=== PATIENT | male | born 1975 | race Two or more races ===

== ENCOUNTER → 2021-06-15 12:25 | Outpatient (BNVA) | payer OTHER, SELFPAY | PROVIDERS: PCP Internal Medicine; Visit Provider Dietitian, Registered | DX: R73.9 Hyperglycemia, unspecified (principal) | CPT/HCPCS: 97802 ==

== ENCOUNTER → 2021-07-29 13:32 | Outpatient (BNVA) | payer OTHER, SELFPAY | PROVIDERS: PCP Internal Medicine; Visit Provider Dietitian, Registered | DX: R73.9 Hyperglycemia, unspecified (principal); Z71.3 Dietary counseling and surveillance | CPT/HCPCS: 97803 ==

== ENCOUNTER 2021-08-14 12:35 | Emergency (ER) | payer OTHER, SELFPAY ==
[2021-08-14 12:45] VITALS: BP 132/71; PULSE 75; RESP 19; TEMP 36.6; O2SAT 98; BMI 32.5
--- NOTE | 2021-08-14 13:07 | ED_ITS ---
HPI - General Adult General Chief complaint: General Medical Stated complaint: Rash Time Seen by Provider: 08/14/21 13:07 Source: patient Mode of arrival: ambulatory Limitations: no limitations History of Present Illness HPI narrative: Patient is a 46 year old male presenting to the emergency department today with a rash to his lower back. Patient states that starting a couple of days ago, he began to have an itchy rash to his lower back and it seems to be getting worse. Patient denies any environmental changes such as new laundry soaps, new body soaps, or new sheets. Patient denies any dizziness, lightheadedness, abdominal pain, nausea, vomiting, fever, chills, blurry vision, double vision, loss of vision, chest pain, difficulty breathing, shortness of breath, back pain, night sweats, pain with urination, increased urinary frequency, increased urinary urgency, blood in his urine or stool, syncope or a near syncopal episode, recent trauma or falls, bowel incontinence, bladder incontinence, bowel retention, bladder retention, or any other complaints at this time. Onset (ago): day(s) Location: back Radiation: non-radiation Severity: mild Severity scale (1-10): 3 Quality: dull Pain Consistency: intermittent Relieving factors: none Exacerbating factors: none Associated symptoms: rash Treatments prior to arrival: none Related Data Previous Rx's Medication Instructions Recorded prednisone 20 mg tablet 20 mg PO DAILY 12 Days #26 tab 08/14/21 Allergies Allergy/AdvReac Type Severity Reaction Status Date / Time No Known Allergies Allergy Unverified 02/06/20 17:19 Review of Systems Constitutional: Constitutional: Reports no additional constitutional complaints, Denies chills, Denies fever(s) and Denies night sweats Eyes: Eyes: Reports no additional eye complaints, Denies blurry vision, Denies change in vision, Denies diplopia, Denies eye discharge, Denies loss of vision and Denies eye pain ENT: Denies dizziness Cardiovascular: Cardiovascular: Reports no additional cardiovascular complaints, Denies chest pain, Denies lightheadedness, Denies Loss of Consciousness and Denies dyspnea Respiratory: Respiratory: Reports no additional respiratory complaints and Denies dyspnea Gastrointestinal: Gastrointestinal: Reports no additional gastrointestinal complaints, Denies abdominal pain, Denies melena, Denies hematochezia, Denies change in bowel habits and Denies change in stool character Genitourinary: Genitourinary: Reports no additional male genitourinary complaints, Denies hematuria, Denies oliguria, Denies difficulty urinating, Denies dysuria, Denies urinary frequency, Denies urinary hesitancy, Denies urin jase incontinence and Denies urinary urgency Musculoskeletal: Musculoskeletal: Reports no additional musculoskeletal complaints, Denies numbness and Denies tingling Integumentary/Breasts: Skin/Breast: Reports rash Neurologic: Denies dizziness, Denies loss of vision, Denies numbness and Denies tingling Psychiatric: Psychiatric: Reports no additional psychiatric complaints Endocrine: Endocrine: Reports no additional endocrine complaints Hematologic/Lymphatic: Hematologic/Lymphatic: Reports no additional hematologic/lymphatic complaints Allergic/Immunologic: Allergic/Immunologic: Reports no additional allergic/immunologic complaints [facility] Past Medical History Attestation statement: The following information was validated with the patient. Source: old records reviewed Medical History Hypothyroidism Social History Social History Advance Directives: No Advance Directives Information Provided: No Physical Exam ED Vital Signs: Vital Signs - 24 hr 08/14/21 12:45 Temperature 98 F Pulse Rate 75 Respiratory Rate 19 Blood Pressure 132/71 Pulse Oximetry 98 BMI result Body Mass Index 32.5 Const General: cooperative, no acute distress, alert and awake Nutritional Appearance: well nourished Orientation/consciousness: patient oriented x3 Limitations: no limitations HENMT Head: Yes normal to inspection and Yes atraumatic Ears: hearing grossly normal bilaterally and external ears normal General nose exam: Normal external nose present, no nasal discharge noted and no epistaxis Face and sinus: Yes normal facial exam, No abrasion and No laceration Mouth: Normal oral and palatal mucosa present, no drooling and no muffled voice Eyes General: appearance normal, both eyes and all related structures Periorbital: periorbital findings normal Eyelids: Yes eyelids normal Conjunctivae: conjunctivae normal Pupils: Equal, round and reactive pupils present EOM: EOMs intact bilaterally Neck Neck: Yes normal visual inspection, Yes full ROM and Yes no lymphadenopathy Chest Chest palpation & inspection: normal inspection of the chest Resp Effort & Inspection: normal respiratory effort and able to speak in complete sentences Auscultation: clear to auscultation bilaterally Cardio Rate: regular rate Rhythm: regular rhythm GI Inspection: Yes normal to inspection Skin Other: urticaria present to the low back Neuro General: patient oriented x3 and moves all extremities Cranial nerves: Yes Equal, round and reactive pupils present Cognition (Neuro): normal cognition Motor exam (neuro): 5/5 motor strength present throughout Sensory Exam: Normal double simultaneous stimulation for sensation Coordination: [id number] test normal Extrem General: Yes normal to inspection, Yes full ROM and Yes capillary refill normal Psych Appearance: grossly normal Mental Status: mental status grossly normal Affect: normal affect Attitude: cooperative Thought process: Normal thought process present Thought content: Normal thought content present Insight: Good insight present (Psych) Medical Decision Making MDM Narrative Medical decision making narrative: Patient is a 46 year old male presenting to the emergency department today with a rash. Patient's physical exam showed urticaria to the low back but was otherwise unremarkable. I explained my physical exam findings to the patient. I answered all questions asked by the patient. Patient received IM solu-medrol and PO Benadryl which he stated helped his itching significantly. I stressed the importance of the patient taking his medication as prescribed. I stressed the importance of the patient following up with his primary care provider. I stressed the importance of the patient returning to the emergency department immediately if his symptoms were to worsen or if he were to develop any dizziness, shortness of breath, difficulty breathing, chest pain, blurry vision, loss of vision, nausea, vomiting, abdominal pain, fever, chills, back pain, or any other complaints. Patient verbalized agreement and understanding with this treatment plan and discharge. Differential Diagnosis Differential Diagnosis: idiopathic urticaria, contact dermatitis Medical Records Medical records reviewed: Yes I reviewed the patient's medical records. Discharge Plan Discharge Clinical Impression: Acute idiopathic urticaria Patient Disposition: Home, Self-Care Instructions: Urticaria (ED), Acute Rash (ED) Additional Instructions: Prescription steroids can cause elevation of your blood sugar, you must pay close attention to this. Follow up with your primary care provider. Return to the emergency department immediately if your symptoms worsen or if you develop any dizziness, shortness of breath, difficulty breathing, chest pain, blurry vision, loss of vision, nausea, vomiting, abdominal pain, fever, chills, back pain, or any other complaints. Prescriptions: New prednisone 20 mg tablet 20 mg PO DAILY 12 Days Qty: 26 0RF Rx Instructions: Take 3 tablets once per day for 5 days; Take 2 tablets once per day for 4 days; Take 1 tablet once per day for 3 days Referrals: Carmen Angulo MD [Primary Care Provider] - 2 days Interventions: ED Discharge Assessment Last Done: 08/14/21 13:37 Discharge Date/Time: 08/14/21 13:39 Print Language: Urdu
[2021-08-14] MEDS: methylPREDNISolone Sod Succ 125 MG/2 ML VIAL 120 MG IM (13:24)
[2021-08-14] MEDS: diphenhydrAMINE HCL 25 MG TABLET 50 MG PO (13:26)
== END 2021-08-14 13:39 | disposition home or self-care (01) ==
PROVIDERS: Emergency Provider Emergency Medicine; PCP Internal Medicine
DX: L50.1 Idiopathic urticaria (principal); E11.9 Type 2 diabetes mellitus without complications
CPT/HCPCS: 96372; 99283; 99284; J2930; Q0163

== ENCOUNTER 2022-08-04 11:30 | Emergency (ER) | payer OTHER, SELFPAY ==
--- NOTE | ~2022-08-04 | XR_ITS ---
EXAMINATION: XR SHOULDER, LEFT CLINICAL INFORMATION: Left shoulder trauma COMPARISON: None available. TECHNIQUE: Three views of the left shoulder. FINDINGS: No evidence for acute bony fracture or dislocation. Clavicle and acromion intact. No scapular disruption. The humeral head and neck are unremarkable. There is mild glenohumeral joint space narrowing. XR/XR shoulder LT min 2V IMPRESSION: No acute process. Mild glenohumeral joint space narrowing.
--- NOTE | ~2022-08-04 | XR_ITS ---
EXAMINATION: XR LUMBOSACRAL SPINE CLINICAL INFORMATION: Lumbar trauma, fell down the stairs COMPARISON: None available. TECHNIQUE: Three views of the lumbosacral spine. FINDINGS: No evidence for acute compression. Slight eccentric disc space narrowing L5-S1. Minimal spondylitic changes observed. There is facet arthrosis. Degenerative change noted at the left SI joint. There is mild narrowing of the superior right hip joint space. XR/XR lumbar spine 2-3V IMPRESSION: 1. No acute compression fracture. Slight eccentric disc space narrowing L5-S1. 2. Facet arthrosis.
[2022-08-04 11:38] VITALS: BP 123/66; PULSE 70; RESP 18; TEMP 36.7; O2SAT 96; BMI 31.0
--- NOTE | 2022-08-04 12:19 | ED_ITS ---
HPI - Extremity Problem General Chief complaint: Extremity Injury, Upper Stated complaint: L shoulder pain Time Seen by Provider: 08/04/22 11:49 Source: patient and family Mode of arrival: ambulatory Limitations: no limitations History of Present Illness HPI Narrative: 46 yo male with history of DM presents to the ER for evaluation of left shoulder pain and low back pain after he slipped and fell down 3 stairs last night at 8:30pm at home. He reports generalized low back back across his entire back, no radiation. Worse with movement and walking. No numbness, tingling or weakness in the legs. He also reports left shoulder pain both anteriolaterally and posteriorly. Minimal pain at rest, only pain with movement. No weakness or numbness in the left arm. No swelling. No other injuries. He did not hit his head or lose consciousness. He is not on a blood thinner. MD Complaint: joint pain Onset (ago): day(s) (1) Pain Consistency: intermittent Location: left, upper extremity and other (low back) Quality: aching Radiation: none Relieving factors: immobilization and rest Exacerbating factors: range of motion and palpation Associated symptoms: denies other symptoms Related Data Previous Rx's Medication Instructions Recorded prednisone 20 mg tablet 20 mg PO DAILY 12 days #26 tabs 08/14/21 cyclobenzaprine 10 mg tablet 10 mg PO TID PRN muscle spasm #14 08/04/22 tabs ibuprofen 800 mg tablet 800 mg PO Q8H PRN pain #10 tabs 08/04/22 lidocaine 5 % topical patch 1 patch topical DAILY #15 ea 08/04/22 Allergies Allergy/AdvReac Type Severity Reaction Status Date / Time No Known Allergies Allergy Unverified 02/06/20 17:19 Review of Systems Review of Systems: Yes all other systems are reviewed and are negative [facility] Past Medical History Medical History Hypothyroidism Social History Social History Alcohol intake: unknown Smoked in Last 30 Days: No Advance Directives: No Advance Directives Information Provided: No Physical Exam Vital Signs: Vital Signs: Last Vital Signs Temp 98.1 F 08/04/22 11:38 Pulse 72 08/04/22 13:11 Resp 18 08/04/22 13:11 BP 110/56 L 08/04/22 13:11 Pulse Ox 95 08/04/22 13:11 O2 Del Method 08/04/22 13:11 BMI result Body Mass Index 31.0 Appearance: Alert. Oriented X3. No acute distress. Eyes: Pupils equal, round and reactive to light. ENT: Pharynx normal. Neck: Normal inspection. Neck supple. CVS: Normal heart rate and rhythm. Pulses normal. Respiratory: No respiratory distress. Breath sounds normal. Back: normal inspection, no ecchymosis. no midline tenderness. soft tissue tenderness bilaterally in the lumbar area. Skin: Skin warm and dry. Normal skin color. Normal skin turgor. No rashes. Extremities: No lower extremity edema. Normal inspection of the legs bilaterally. normal inspection of bilateral shoulders, mild tenderness of the AC joint and posterior shoulder. limited abduction anteriorly and laterally, able to lift 90 degrees but no higher. Neuro: Oriented X 3. No motor deficit. No sensory deficit. Steady gait. 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 No LOC and he got up quickly after the fall. He is ambulatory. His exam is not consistent with any midline tenderness of the spine. He does have limited range of motion of the shoulder along with tenderness. Concern for possible sprain versus strain verses rotator cuff injury. X-ray today showed no acute fractures or injuries. Will plan to discharge patient with supportive care, outpatient follow-up with orthopedics for further evaluation treatment. Patient agrees with plan. Differential Diagnosis Differential Diagnoses: The differential diagnosis associated with the presentation includes Left shoulder sprain, left shoulder strain, rotator cuff tear, AC joint separation, contusion, low back contusion, compression fracture of the lumbar spine, lumbar strain Independent Interpretation I performed an independent interpretation of an: Plain X-Ray Interpretation: shoulder x-ray - no appreciated fractures, no AC joint separation lumar spine x-ray - no compression deformities or appreciated fractures. Radiology Impression Discussion of test interpretation with radiology: I have reviewed the radiologist's reading. Radiologist Impression: EXAMINATION: XR SHOULDER, LEFT CLINICAL INFORMATION: Left shoulder trauma? COMPARISON: None available.? TECHNIQUE: Three views of the left shoulder. FINDINGS: No evidence for acute bony fracture or dislocation. Clavicle and acromion intact. No scapular disruption. The humeral head and neck are unremarkable. There is mild glenohumeral joint space narrowing.? XR/XR shoulder LT min 2V - IMPRESSION: No acute process. Mild glenohumeral joint space narrowing. EXAMINATION: XR LUMBOSACRAL SPINE CLINICAL INFORMATION: Lumbar trauma, fell down the stairs COMPARISON: None available. TECHNIQUE: Three views of the lumbosacral spine. FINDINGS: No evidence for acute compression. Slight eccentric disc space narrowing L5-S1. Minimal spondylitic changes observed. There is facet arthrosis. Degenerative change noted at the left SI joint. There is mild narrowing of the superior right hip joint space. XR/XR lumbar spine 2-3V IMPRESSION: 1.? No acute compression fracture. Slight eccentric disc space narrowing L5-S1. 2.? Facet arthrosis. ? Independent Historian Clinical information obtained from an independent historian. History obtained from or confirmed by: Spouse Prescription Management I considered prescription management with: Pain Medication and Other (Muscle relaxer and anti-inflammatory medication) Chronic Conditions Patient?s care impacted by: Diabetes Critical Care Time Critical Care Time Critical Care Time: No Discharge Plan Discharge Clinical Impression: Contusion of lower back, Injury of shoulder Patient Disposition: Home, Self-Care Instructions: Low Back Strain (ED), Shoulder Pain (ED) Additional Instructions: Your x-rays today did not show any acute fractures or injuries. Recommend taking the prescribed anti-inflammatory medication and muscle relaxers as needed for pain. Slowly work on gentle range of motion exercises for your shoulder. Recommend following up with the orthopedic provider for further evaluation and treatment of your shoulder injury. No bending, lifting or twisting. Use ice several times per day for 20 minutes at a time for the next 48 hours and then change to heat. Take medications as prescribed to help with pain and discomfort. Follow up with your Primary Care Doctor this week. If your pain worsens, if you develop new numbness, tingling, weakness, loss of function or incontinence call 911 or come back to the ER right away for evaluation. Prescriptions: New cyclobenzaprine 10 mg tablet 10 mg PO TID PRN (Reason: muscle spasm) Qty: 14 0RF ibuprofen 800 mg tablet 800 mg PO Q8H PRN (Reason: pain) Qty: 10 0RF lidocaine 5 % adhesive patch,medicated 1 patch topical DAILY Qty: 15 0RF Rx Instructions: leave on most painful area for up to 12 hrs No Action prednisone 20 mg tablet 20 mg PO DAILY 12 Days Qty: 26 0RF Rx Instructions: Take 3 tablets once per day for 5 days; Take 2 tablets once per day for 4 days; Take 1 tablet once per day for 3 days Referrals: [facility] [Provider Group] (s/p left shoulder injury, ?rotator cuff injury) Carmen Angulo MD [Primary Care Provider] - Stand Alone Forms: Work/School Release Interventions: ED Discharge Assessment Last Done: 08/04/22 13:14 Discharge Date/Time: 08/04/22 13:15
[2022-08-04] MEDS: Ibuprofen 600 MG TABLET PO (12:39)
[2022-08-04 13:11] VITALS: BP 110/56; PULSE 72; RESP 18; O2SAT 95
== END 2022-08-04 13:15 | disposition home or self-care (01) ==
PROVIDERS: Emergency Provider Emergency Medicine; PCP Internal Medicine
DX: S30.0XXA Contusion of lower back and pelvis, initial encounter (principal); S49.92XA Unspecified injury of left shoulder and upper arm, initial encounter; W10.8XXA Fall (on) (from) other stairs and steps, initial encounter; Y93.89 Activity, other specified; Y92.018 Other place in single-family (private) house as the place of occurrence of the external cause; Y99.9 Unspecified external cause status
CPT/HCPCS: 72100; 73030; 99283; 99284